=== PATIENT | female | born 1930 | race Caucasian/White ===

== ENCOUNTER 2017-02-25 09:36 | Inpatient (IN) | payer MEDICARE ==
[~2017-02-25] VITALS: Ht 168 cm; Wt 75.4 kg
[~2017-02-25 09:36] MED LIST: ASPIRIN EC325 MG PO
[2017-02-25 11:07] LABS: HEMOGLOBIN 9.5 gm/dl (12.3-15.3); RED BLOOD COUNT 3.28 M/UL (4.00-5.10); WHITE BLOOD COUNT 9.2 K/UL (4.5-11.0)
[2017-02-25 15:18] LABS: HEMOGLOBIN 9.2 gm/dl (12.3-15.3); RED BLOOD COUNT 3.21 M/UL (4.00-5.10); WHITE BLOOD COUNT 8.3 K/UL (4.5-11.0)
[2017-02-25] MEDS ORDERED: ASPIR 8181 MG PO (17:56)
[2017-02-25] MEDS ORDERED: COLACE 100MG C100 MG PO (17:57)
[2017-02-25] MEDS ORDERED: CAL-CITRATE PL1 EACH PO (18:10)
[2017-02-25] MEDS ORDERED: ALLEGRA ALLERG180 MG PO (19:36)
[2017-02-25] MEDS ORDERED: COREG 25MG TAB25 MG PO (19:36)
[2017-02-25] MEDS ORDERED: NAMENDA10 MG PO (19:37)
[2017-02-25] MEDS ORDERED: ELIQUIS2.5 MG PO (19:38)
[2017-02-25] MEDS ORDERED: SINGULAIR10 MG PO (19:39)
[2017-02-25] MEDS ORDERED: HYDROCHLOROTHIA25 MG PO (19:40)
[2017-02-25] MEDS ORDERED: LIPITOR TAB 2020 MG PO (19:41)
[2017-02-25] MEDS ORDERED: SYNTHROID112 MCG PO (19:41)
[2017-02-25] MEDS ORDERED: VITAMIN D250000 UNIT PO (19:41)
[2017-02-25] MEDS ORDERED: PLAVIX 75 MG TA75 MG PO (19:42)
[2017-02-25] MEDS ORDERED: VALSARTAN160 MG PO (19:42)
[2017-02-25] MEDS ORDERED: VITAMIN B-1000 MCG/M IM (19:43)
[2017-02-25] MEDS ORDERED: LANTUS100 UNIT/1 SQ (19:44)
[2017-02-25] MEDS ORDERED: NOVOLOG100 UNIT/1 SQ (19:45)
[2017-02-26 04:44] LABS: HEMOGLOBIN 9.1 gm/dl (12.3-15.3); RED BLOOD COUNT 3.2 M/UL (4.00-5.10); WHITE BLOOD COUNT 8.9 K/UL (4.5-11.0)
[2017-02-27 06:09] LABS: HEMOGLOBIN 9.5 gm/dl (12.3-15.3); RED BLOOD COUNT 3.29 M/UL (4.00-5.10); WHITE BLOOD COUNT 8.2 K/UL (4.5-11.0)
[2017-02-27] MEDS ORDERED: LASIX20 MG PO (11:27)
[2017-02-27] MEDS ORDERED: NITROSTAT 0.425 TAB SL (11:54)
== END 2017-02-27 14:25 | disposition home or self-care (01) | DRG 291 ==
LOC: ER1 09:36 → M/S 13:00
PROVIDERS: Emergency Medicine; ADMIT Family Medicine
DX: I13.0 Hypertensive heart and chronic kidney disease with heart failure and stage 1 through stage 4 chronic kidney disease, or unspecified chronic kidney disease (principal); I50.23 Acute on chronic systolic (congestive) heart failure; J20.9 Acute bronchitis, unspecified; I48.91 Unspecified atrial fibrillation; J30.9 Allergic rhinitis, unspecified; F41.9 Anxiety disorder, unspecified; E11.22 Type 2 diabetes mellitus with diabetic chronic kidney disease; N18.3 Chronic kidney disease, stage 3 (moderate); E03.9 Hypothyroidism, unspecified; D64.9 Anemia, unspecified; G30.9 Alzheimer's disease, unspecified; F02.80 Dementia in other diseases classified elsewhere, unspecified severity, without behavioral disturbance, psychotic disturbance, mood disturbance, and anxiety; E78.5 Hyperlipidemia, unspecified; I25.10 Atherosclerotic heart disease of native coronary artery without angina pectoris; R32 Unspecified urinary incontinence; Z95.1 Presence of aortocoronary bypass graft; M19.90 Unspecified osteoarthritis, unspecified site; Z95.810 Presence of automatic (implantable) cardiac defibrillator; Z82.49 Family history of ischemic heart disease and other diseases of the circulatory system; Z83.3 Family history of diabetes mellitus; Z79.01 Long term (current) use of anticoagulants; Z79.82 Long term (current) use of aspirin; Z79.02 Long term (current) use of antithrombotics/antiplatelets; Z79.899 Other long term (current) drug therapy; Z88.2 Allergy status to sulfonamides; Z88.5 Allergy status to narcotic agent; Z79.4 Long term (current) use of insulin
CPT/HCPCS: ECHO; 36415; 36600; 71010; 80048; 80053; 80061; 81001; 82550; 82553; 82803; 82962; 83735; 83880; 84443; 84484; 85025; 85027; 85610; 85730; 87040; 93005; 93306; 94640; 94664; 99285; J1940